=== PATIENT | female | born 1975 | race Caucasian/White ===

== ENCOUNTER → 2017-12-07 13:17 | Outpatient (CLI) | payer MEDICAID, SELFPAY ==
--- NOTE | 2017-12-07 13:24 | MRI_ITS ---
STUDY: MRI RIGHT WRIST WITHOUT CONTRAST REASON FOR EXAM: Female, 42 years old. Injury. Patient then bilateral large dog. Crush injury. TECHNIQUE: Standardized fat and water weighted pulse sequences were obtained in all 3 orthogonal planes. COMPARISON: None. FINDINGS: There is marrow edema of the distal radius adjacent to the distal radioulnar joint, series 7 image 12/31 through . Normal visualized distal ulna. There is a joint effusion of the distal radioulnar articulation with capsular distension. There is focal full-thickness tear of the triangular fibrocartilage complex adjacent to the radial insertion, series 4 images through . Normal carpal bones. Normal radiocarpal, intercarpal and midcarpal articulations. Normal pisotriquetral articulation. Normal visualized interosseous scapholunate ligament. Normal visualized dorsal (extrinsic) ligaments. Normal visualized volar (extrinsic) ligaments. Normal extensor tendons. Normal flexor tendons. Normal carpal tunnel with a normal median nerve. Normal carpometacarpal articulation of the thumb. Normal second through fifth carpometacarpal articulations. Normal visualized metacarpal bones. There is no demonstrated soft tissue abnormality. MRI/Upper Ext Joint Only(Routine) IMPRESSION: Triangular fibrocartilage complex tear. Bone bruising of the distal radius. Electronically Signed: Jonh Carvalho MD at 14:33 EDT , Service support ,
== END ==
PROVIDERS: Family Provider Family Medicine; PCP Family Medicine; Referring Provider Orthopaedic Surgery Orthopaedic Surgery of the Spine; Visit Provider Orthopaedic Surgery Orthopaedic Surgery of the Spine
DX: M24.131 Other articular cartilage disorders, right wrist (principal)
CPT/HCPCS: 73221

== ENCOUNTER 2022-05-20 07:30 | Outpatient (RCR) | payer OTHER, MEDICAID, SELFPAY ==
--- NOTE | 2022-04-20 14:26 | HP.PTEVAL_ITS ---
Patient's Visit Information TARAN JHAVERI is a 46 year old F referred to Physical Therapy by NICHOLAS RAPP with a diagnosis of L LE peroneal nerve damage. Date of Evaluation: 04/20/22 Physical Therapist: Germán Spears PT, ATC - Visit Plan Frequency: 2-3x /Week Duration: 4-6 Weeks Plan: L LE stretching and strengthening, balance and proprio, gait training, bike, and HEP - Subjective DOI: 01/24/22. Pt reports she was working for a [employer] at the time when a fellow Inside struck her in the L LE. Pt reports she suffered a fractured fibula, significant lacerations, and damage to her peroneal nerve. Pt reports she had surgery 3 days later to have nerve grafts performed at that time. Pt reports she is able to walk fine now, but reports she is not able to lift her L ankle laterally. 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 Pt reports she has not returned to work at this time. Pt reports she has numbness in her L LE on the lateral and anterior portions. Pt reports no L LE problems prior to this episode. Pt reports sleep difficulty at this time secondary to pain. Pt reports she is limited with many IADL's and recreational activities at this time such as exercises, prolonged walking, and stair negotiation. Pt is able to ascend her stairs, but has to negotiate them one step at a time. Pt also complains of significant balance deficits at this time. 2/10 pain at rest, 8/10 pain at worst (when she sits for a long period of time and attempts to ambulate) - Pain L LE Pain Intensity (Out of 10): 2 Pain Intensity Range: 8 - Objective Neuro: B LE sensation is WNL to light touch with exception to L LE lateral aspect. B patellar reflex= 2/3. Observation: Incisions healed at this time. No obvious infections at this time. ROM: R ankle DF= 15, PF= 60, eversion= 20, inversion= 45; L ankle DF= -30, PF= 35, Ever= -15, Inv= 25. strength : R ankle DF= 35,PF= 39, eversion= 38, inversion= 38 #F; L ankle DF= 0, PF= 20, Ever= 0, Inv= 4 #F. Gait: Pt ambulates with L ankle flopping secondary to drop foot of L LE - Balance/Special Test Scores Lower Extremity Functional Score: 34 - Goals Goal 1:: Decrease L LE pain x 50% to aid with ambulation Goal Time Frame: 4-6 Weeks Goal 2:: Increase L ankle DF and ever strength x 5-10 #F to aid with return to work Goal Time Frame: 4-6 Weeks Goal 3:: Increase L ankle DF and ever ROM x 10-15 degrees to aid with ambulation Goal Time Frame: 4-6 Weeks Goal 4:: I with HEP Goal Time Frame: 4-6 Weeks - Rehabilitation Potential Physical Therapy Diagnosis: Pt has L LE weakness, pain, and limited ROM secondary to peroneal nerve damage Rehabilitation Potential: Good - Anticipated Interventions Patient/Client Instruction: Educate patient on: Condition, Plan of Care For the Purpose of:: To decrease pain, To increase ROM, To improve muscle performance and motor function, To increase tolerance to activity/condition/position Therapeutic Exercise to Include: Strength training, Endurance training, Balance training, Flexibilty training, Active ROM, Dynamic Lumbar Stabilization For the Purpose of:: To decrease pain, To increase ROM, To improve muscle performance and motor function Cryotherapy (ice pack, ice massage): Yes For the Purpose of:: To decrease pain Thank you for the opportunity to evaluate your patient. For Medicare and Medicare HMO plans, please review the plan of care and approve it. It will need to be FAXED BACK to us at [phone] for Medicare purposes. For Medicare only, by signing this I certify the plan of care. Please let me know if there are questions or concerns regarding this plan of care. Physician Signature: Date:
--- NOTE | 2022-05-20 08:03 | HP.PTDCSUM_ITS ---
It has been my pleasure to treat TARAN JHAVERI referred by NICHOLAS RAPP, with the diagnosis of L LE peroneal nerve damage for a total of 7 visit(s). Discharge Date: Please see the following information for a summary of their discharge status. Subjective: I feel like I am as good as its gonna get. The nerve will only heal so much L LE Pain Intensity (Out of 10): 5 % Improvement: 0 Objective/Function: L LE pain ranges from 5-8/10. L ankle ROM: DF= -55, ever= - 20. L ankle MMT: DF= 0, ever= 0. Pt is I with HEP Goal 1:: Decrease L LE pain x 50% to aid with ambulation Goal Progress: Not Progressing Goal 2:: Increase L ankle DF and ever strength x 5-10 #F to aid with return to work Goal Progress: Not Progressing Goal 3:: Increase L ankle DF and ever ROM x 10-15 degrees to aid with ambulation Goal Progress: Not Progressing Goal 4:: I with HEP Goal Progress: Goal Met Plan: Discontinue to HEP If there are questions or concerns regarding this patient's physical therapy, please feel free to call me at [phone]. Thank you for the referral of this patient. Sincerely, Germán Spears, PT, ATC Balance/Gait/Functional tests - Balance/Special Test Scores Lower Extremity Functional Score: 34
== END 2022-05-20 10:54 | disposition home or self-care (01) ==
LOC: PT 07:30
PROVIDERS: PCP Family Medicine
DX: S84.12XD Injury of peroneal nerve at lower leg level, left leg, subsequent encounter (principal)
CPT/HCPCS: 97014; 97110; 97161; 97164; 97530; G0283